=== PATIENT | female | born 1995 | race Caucasian/White ===

== ENCOUNTER 2017-10-24 20:05 | Inpatient (IN) | payer OTHER ==
[2017-10-24] MEDS ORDERED: LACTATED RINGER'S 1,000 ML IV (21:05)
[2017-10-24] MEDS: LACTATED RINGER'S 1,000 ML IV (21:14)
[2017-10-24 21:30] LABS: ADD MAN DIFF? NO
[2017-10-24] MEDS ORDERED: METHYLERGONOVINE 0.2 MG INJ IM (21:30)
[2017-10-24] MEDS ORDERED: CARBOPROST 250 MCG INJ IM (21:30)
[2017-10-24] MEDS ORDERED: MISOPROSTOL 200 MCG TAB PR (21:30)
[2017-10-24] MEDS ORDERED: OXYTOCIN 30 UNITS/LR 500 ML IV ×2 (21:30)
[2017-10-24] MEDS: DINOPROSTONE 10 MG VAG SUPP VAG (21:51)
[2017-10-24 21:55] LABS: INR 0.93; PROTIME 12.6 Sec (11.9-14.9)
[2017-10-24 23:47] LABS: BASOPHILS % 0.3 % (0.0-2.0); EOSINOPHILS # 0.1 10^3/ul (0.0-0.5); EOSINOPHILS % 0.5 % (0.0-7.0); HEMATOCRIT 36.4 % (37.0-47.0); HEMOGLOBIN 13.2 g/dl (12.0-16.0); LYMPHOCYTES # 2.1 10^3/ul (0.8-2.9); LYMPHOCYTES % 20.1 % (18.0-55.0); MEAN CORPUSCULAR HEMOGLOBIN 33.2 pg (29.0-33.0); MEAN CORPUSCULAR HGB CONC 36.3 g/dl (32.0-37.0); MEAN CORPUSCULAR VOLUME 91.5 fl (72.0-104.0); MEAN PLATELET VOLUME 11.5 fl (7.4-10.4); MONOCYTE # 0.8 10^3/ul (0.3-0.9); MONOCYTES % 7.5 % (0.0-13.0); NEUTROPHIL # 7.2 10^3/ul (1.6-7.5); NEUTROPHILS % 71.1 % (30.0-74.0); PLATELET COUNT 212 10^3/UL (140-415); RED BLOOD COUNT 3.98 10^6/ul (4.20-5.40); RED CELL DISTRIBUTION WIDTH 12.6 % (11.5-14.5)
[2017-10-24 23:47] LABS: WHITE BLOOD COUNT 10.2 10^3/ul (4.8-10.8)
[2017-10-25 00:03] LABS: HEPATITIS B SURFACE ANTIGEN NEGATIVE (NEGATIVE)
[2017-10-25 00:17] LABS: AMPHETAMINE/METHAMPHETAMINE Negative (NEGATIVE); BARBITURATES Negative (NEGATIVE); BENZODIAZEPINES Negative (NEGATIVE); CANNABINOIDS Negative (NEGATIVE); COCAINE Negative (NEGATIVE); OPIATES Negative (NEGATIVE)
[2017-10-25] MEDS: LACTATED RINGER'S 1,000 ML IV ×3 (02:07→17:07)
[2017-10-25] MEDS: OXYTOCIN 30 UNITS/LR 500 ML IV ×2 (09:47→18:44)
[2017-10-25] MEDS ORDERED: BUTORPHANOL 2 MG INJ (18:34)
[2017-10-25] MEDS: IBUPROFEN 600 MG TAB PO (18:40)
[2017-10-25] MEDS: LIDOCAINE 1% (MPF) 30 ML INJ INJ (18:45)
[2017-10-25] MEDS ORDERED: CARBOPROST 250 MCG INJ IM (21:00)
[2017-10-25] MEDS ORDERED: HYDROCODONE/APAP (5/325) TAB PO ×2 (21:00)
[2017-10-25] MEDS ORDERED: OXYTOCIN 30 UNITS/LR 500 ML IV (21:00)
[2017-10-25] MEDS ORDERED: LANOLIN 7 GM TUBE TOP (21:00)
[2017-10-25] MEDS ORDERED: ZOLPIDEM 5 MG TAB PO (21:00)
[2017-10-25] MEDS ORDERED: MISOPROSTOL 200 MCG TAB PR (21:00)
[2017-10-25] MEDS ORDERED: METHYLERGONOVINE 0.2 MG INJ IM (21:00)
[2017-10-25] MEDS: WITCH HAZEL/GLYCERIN PAD PR (21:30)
[2017-10-25] MEDS: BENZOCAINE 20% 56 ML SPRAY TOP (21:30)
[2017-10-25] MEDS: MAGNESIUM HYDROXIDE 30ML CUP PO (21:30)
[2017-10-25] MEDS: SENNA/DOCUSATE NA (8.6MG/50MG) TAB PO (21:30)
[2017-10-25 22:33] LABS: RAPID PLASMA REAGIN NONREACTIVE (NR)
[2017-10-25] MEDS: LACTATED RINGER'S 1,000 ML IV* (23:15)
[2017-10-26] MEDS: IBUPROFEN 600 MG TAB PO ×5 (00:08→23:45)
[2017-10-26 08:39] LABS: ADD MAN DIFF? NO
[2017-10-26 08:49] LABS: WHITE BLOOD COUNT 11.8 10^3/ul (4.8-10.8)
[2017-10-26 08:49] LABS: BASOPHILS % 0.3 % (0.0-2.0); EOSINOPHILS % 0.3 % (0.0-7.0); HEMATOCRIT 32.7 % (37.0-47.0); LYMPHOCYTES % 16.7 % (18.0-55.0); MEAN CORPUSCULAR HEMOGLOBIN 33.4 pg (29.0-33.0); MEAN CORPUSCULAR HGB CONC 36.7 g/dl (32.0-37.0); MEAN CORPUSCULAR VOLUME 91.1 fl (72.0-104.0); MEAN PLATELET VOLUME 11.3 fl (7.4-10.4); MONOCYTE # 1.1 10^3/ul (0.3-0.9); NEUTROPHIL # 8.6 10^3/ul (1.6-7.5); NEUTROPHILS % 72.9 % (30.0-74.0); PLATELET COUNT 186 10^3/UL (140-415); RED BLOOD COUNT 3.59 10^6/ul (4.20-5.40); RED CELL DISTRIBUTION WIDTH 12.7 % (11.5-14.5)
[2017-10-26] MEDS: MAGNESIUM HYDROXIDE 30ML CUP PO ×2 (10:06→20:45)
[2017-10-26] MEDS: DIBUCAINE 1% 30 GM OINT PR (10:06)
[2017-10-26] MEDS: SENNA/DOCUSATE NA (8.6MG/50MG) TAB PO ×2 (10:07→20:45)
[2017-10-27] MEDS: IBUPROFEN 600 MG TAB PO ×2 (05:28→13:07)
[2017-10-27] MEDS: MAGNESIUM HYDROXIDE 30ML CUP PO (08:29)
[2017-10-27] MEDS ORDERED: DIPHTH/TET/ACEL PERTUSS (ADULT) 0.5 ML VIAL IM* (09:00)
[2017-10-27] MEDS: VARICELLA VACCINE LIVE/PF 1,350 UNIT/0.5 ML ML SC* (09:00)
[2017-10-27] MEDS: SENNA/DOCUSATE NA (8.6MG/50MG) TAB PO (09:00)
[2017-10-27] MEDS ORDERED: MEASLES,MUMPS,RUBELLA VACCINE INJ SC* (09:00)
== END 2017-10-27 14:35 | disposition home or self-care (01) | DRG 775 ==
LOC: OBT 20:05 → L-D 20:07 → PP1 10-25 20:19 → OBT 21:38 → L-D 21:42
PROVIDERS: Obstetrics & Gynecology
PROC: 10E0XZZ Delivery of Products of Conception, External Approach (ICD-10-PCS; principal; 2017-10-25)
PROC: 0UQKXZZ Repair Hymen, External Approach (ICD-10-PCS; 2017-10-25)
PROC: 3E0P7VZ Introduction of Hormone into Female Reproductive, Via Natural or Artificial Opening (ICD-10-PCS; 2017-10-25)
DX: O70.0 First degree perineal laceration during delivery (principal); Z37.0 Single live birth; Z3A.39 39 weeks gestation of pregnancy
CPT/HCPCS: 80307; 85025; 85610; 85730; 86592; 86900; 86901; 87340; 90716

== ENCOUNTER 2018-06-06 16:07 | Inpatient (IN) | payer BC ==
[2018-06-06] MEDS: SODIUM CHLORIDE 0.9% 1L BAG IV* (17:50)
[2018-06-06] MEDS: ACETAMINOPHEN 325 MG TAB PO (17:50)
[2018-06-06 17:51] LABS: ADD MAN DIFF? NO
[2018-06-06] MEDS: ONDANSETRON 4 MG INJ IV (17:53)
[2018-06-06 17:56] LABS: ABNORMAL IP MESSAGE 1; BASOPHILS % 0.1 % (0.0-2.0); EOSINOPHILS % 0.1 % (0.0-7.0); HEMATOCRIT 34.2 % (37.0-47.0); HEMOGLOBIN 12.3 g/dl (12.0-16.0); LYMPHOCYTES # 0.4 10^3/ul (0.8-2.9); LYMPHOCYTES % 2.7 % (15.0-51.0); MEAN CORPUSCULAR HEMOGLOBIN 31.5 pg (29.0-33.0); MEAN CORPUSCULAR VOLUME 87.5 fl (82.0-101.0); MEAN PLATELET VOLUME 10.4 fl (7.4-10.4); MONOCYTE # 0.5 10^3/ul (0.3-0.9); MONOCYTES % 3.4 % (0.0-11.0); NEUTROPHIL # 12.4 10^3/ul (1.6-7.5); NEUTROPHILS % 93.3 % (39.0-77.0); PLATELET COUNT 194 10^3/UL (140-415); RED BLOOD COUNT 3.91 10^6/ul (4.20-5.40); RED CELL DISTRIBUTION WIDTH 12.2 % (11.5-14.5)
[2018-06-06 17:56] LABS: WHITE BLOOD COUNT 13.3 10^3/ul (4.8-10.8)
[2018-06-06 18:01] LABS: LACTIC ACID 1.6 mmol/L (0.5-2.0)
[2018-06-06 18:04] LABS: ADD UMIC YES; UR ASCORBIC ACID NEGATIVE (NEGATIVE); UR BACTERIA FEW /HPF (NONE SEEN); UR BILIRUBIN (Dip) NEGATIVE (NEGATIVE); UR BLOOD (Dip) 1+ mg/dL (NEGATIVE); UR CLARITY SLIGHTLY CLOUDY (CLEAR); UR COLOR YELLOW (YELLOW); UR GLUCOSE (Dip) NEGATIVE (NEGATIVE); UR KETONES (Dip) 2+ mg/dL (NEGATIVE); UR LEUKOCYTE ESTERASE (Dip) 2+ Leu/ul (NEGATIVE); UR MUCUS FEW /HPF (NONE SEEN); UR NITRITE (Dip) POSITIVE (NEGATIVE); UR RBC 8 /HPF (0-5); UR SPECIFIC GRAVITY (Dip) 1.016 (1.003-1.030); UR SQUAMOUS EPITHELIAL CELL FEW /HPF (FEW); UR TOTAL PROTEIN (Dip) 2+ mg/dl (NEGATIVE); UR UROBILINOGEN (Dip) NEGATIVE (NEGATIVE); UR WBC 94 /HPF (0-5)
[2018-06-06 18:08] LABS: POSITIVE DIFF @See below
[2018-06-06 18:22] LABS: ALANINE AMINOTRANSFERASE 13 IU/L (13-69); ALBUMIN 4.1 g/dl (3.3-4.9); ALKALINE PHOSPHATASE 57 IU/L (42-121); ANION GAP 17 (8-16); ASPARTATE AMINO TRANSFERASE 18 IU/L (15-46); BILIRUBIN,INDIRECT 0.9 mg/dl (0-1.1); BILIRUBIN,TOTAL 0.9 mg/dl (0.2-1.3); BLOOD UREA NITROGEN 6 mg/dl (7-20); CARBON DIOXIDE 19 mmol/L (21-31); CHLORIDE 104 mmol/L (97-110); GLUCOSE 122 mg/dl (70-220); POTASSIUM 3.6 mmol/L (3.5-5.1); SODIUM 136 mmol/L (135-144); TOTAL PROTEIN 7.5 g/dl (6.1-8.1)
[2018-06-06] MEDS: CEFTRIAXONE 1 GM/50 ML (PMX) 50 ML IVPB (18:48)
[2018-06-06 19:36] LABS: LACTIC ACID 1.4 mmol/L (0.5-2.0)
[2018-06-06] MEDS ORDERED: ACETAMINOPHEN 325 MG TAB PO (21:30)
[2018-06-06] MEDS ORDERED: ONDANSETRON 4 MG INJ IV ×2 (21:30→23:00)
[2018-06-06 21:56] LABS: LACTIC ACID 0.7 mmol/L (0.5-2.0)
[2018-06-06] MEDS ORDERED: NACL 0.9% 3 ML SYG IV (23:00)
[2018-06-06] MEDS ORDERED: DOCUSATE SODIUM 100 MG CAP PO (23:00)
[2018-06-06] MEDS ORDERED: BISACODYL (EC) 5 MG TAB PO (23:00)
[2018-06-07 05:11] LABS: ADD MAN DIFF? NO
[2018-06-07 05:17] LABS: BASOPHILS % 0.2 % (0.0-2.0); EOSINOPHILS # 0.1 10^3/ul (0.0-0.5); EOSINOPHILS % 0.5 % (0.0-7.0); HEMATOCRIT 30.6 % (37.0-47.0); HEMOGLOBIN 11.1 g/dl (12.0-16.0); LYMPHOCYTES # 1.4 10^3/ul (0.8-2.9); LYMPHOCYTES % 15.4 % (15.0-51.0); MEAN CORPUSCULAR HEMOGLOBIN 32.4 pg (29.0-33.0); MEAN CORPUSCULAR HGB CONC 36.3 g/dl (32.0-37.0); MEAN CORPUSCULAR VOLUME 89.2 fl (82.0-101.0); MEAN PLATELET VOLUME 10.2 fl (7.4-10.4); MONOCYTE # 0.9 10^3/ul (0.3-0.9); MONOCYTES % 9.6 % (0.0-11.0); NEUTROPHIL # 6.9 10^3/ul (1.6-7.5); NEUTROPHILS % 73.9 % (39.0-77.0); PLATELET COUNT 183 10^3/UL (140-415); RED BLOOD COUNT 3.43 10^6/ul (4.20-5.40); RED CELL DISTRIBUTION WIDTH 12.1 % (11.5-14.5)
[2018-06-07 05:17] LABS: WHITE BLOOD COUNT 9.3 10^3/ul (4.8-10.8)
[2018-06-07 05:28] LABS: HEMOGLOBIN A1C 4.7 % (0-5.9)
[2018-06-07 05:39] LABS: ALANINE AMINOTRANSFERASE 16 IU/L (13-69); ALBUMIN 3.4 g/dl (3.3-4.9); ALBUMIN/GLOBULIN RATIO 1.17; ALKALINE PHOSPHATASE 46 IU/L (42-121); ANION GAP 10 (8-16); ASPARTATE AMINO TRANSFERASE 13 IU/L (15-46); BILIRUBIN,INDIRECT 0.6 mg/dl (0-1.1); BILIRUBIN,TOTAL 0.6 mg/dl (0.2-1.3); BLOOD UREA NITROGEN 3 mg/dl (7-20); CALCIUM 8.5 mg/dl (8.4-10.2); CARBON DIOXIDE 23 mmol/L (21-31); CHLORIDE 108 mmol/L (97-110); GLUCOSE 95 mg/dl (70-220); MAGNESIUM 1.6 mg/dl (1.7-2.5); POTASSIUM 3.3 mmol/L (3.5-5.1); SODIUM 138 mmol/L (135-144); TOTAL PROTEIN 6.3 g/dl (6.1-8.1)
[2018-06-07 06:07] LABS: THYROID STIMULATING HORMONE 0.027 MIU/L (0.465-4.680)
[2018-06-07] MEDS: MAGNESIUM SULFATE 2 GM/50 ML 50 ML IVPB (08:22)
[2018-06-07] MEDS: POTASSIUM CHLORIDE (SR) 20 MEQ TAB PO (08:52)
[2018-06-07] MEDS: SOD CHLORIDE 0.9% 1,000 ML IV (09:38)
[2018-06-07 11:25] LABS: T4 (THYROXINE) 12.1 ug/dl (5.5-11.0)
[2018-06-07 11:48] LABS: FREE T3 3.29 pg/ml (2.77-5.27)
[2018-06-07 12:02] LABS: TRIIODOTHYRONINE 1.17 ng/ml (0.97-1.69)
[2018-06-07] MEDS: CEFTRIAXONE 2 GM/50 ML (PMX) 50 ML IVPB (18:04)
[2018-06-08] MEDS: ACETAMINOPHEN 325 MG TAB PO (00:21)
[2018-06-08] MEDS: SOD CHLORIDE 0.9% 1,000 ML IV ×2 (00:22→02:33)
[2018-06-08] MEDS ORDERED: PIPER-TAZO 3.375 GM IV (PMX) 100 ML IVPB (02:00)
[2018-06-08 06:05] LABS: ANION GAP 11 (8-16); BLOOD UREA NITROGEN 3 mg/dl (7-20); CALCIUM 8.7 mg/dl (8.4-10.2); CARBON DIOXIDE 25 mmol/L (21-31); CHLORIDE 106 mmol/L (97-110); GLUCOSE 87 mg/dl (70-220); MAGNESIUM 1.9 mg/dl (1.7-2.5); PHOSPHORUS 4.5 mg/dl (2.5-4.9); SODIUM 138 mmol/L (135-144)
[2018-06-08] MEDS: CEFTRIAXONE 2 GM/50 ML (PMX) 50 ML IVPB (18:29)
[2018-06-09] MEDS: CEFTRIAXONE 2 GM/50 ML (PMX) 50 ML IVPB (18:40)
[2018-06-13 23:27] LABS: TSH RECEPTOR ANTIBODY 10 (< OR = 16)
== END 2018-06-10 12:30 | disposition left against medical advice (07) | DRG 781 ==
LOC: MS3 21:13 → MS1 06-08 02:35 → FTE 16:07
DX: O23.01 Infections of kidney in pregnancy, first trimester (principal); O20.9 Hemorrhage in early pregnancy, unspecified; Z3A.13 13 weeks gestation of pregnancy
CPT/HCPCS: 36415; 76775; 76805; 80048; 80053; 81001; 83036; 83605; 83735; 84100; 84235; 84436; 84439; 84443; 84480; 84481; 85025; 87040; 87086; 96374; 96375; 99285-25

== ENCOUNTER 2018-12-01 04:19 | Inpatient (IN) | payer BC ==
[2018-12-01] MEDS ORDERED: METHYLERGONOVINE 0.2 MG INJ IM ×2 (05:30→10:30)
[2018-12-01] MEDS ORDERED: AMPICILLIN 2 GM/NS (PMX) 100 ML IV (05:30)
[2018-12-01] MEDS ORDERED: BUTORPHANOL 2 MG INJ IV (05:30)
[2018-12-01] MEDS ORDERED: IBUPROFEN 600 MG TAB PO (05:30)
[2018-12-01] MEDS ORDERED: LIDOCAINE 1% (MPF) 30 ML INJ INJ (05:30)
[2018-12-01] MEDS ORDERED: CARBOPROST 250 MCG INJ IM ×2 (05:30→10:30)
[2018-12-01] MEDS ORDERED: OXYCODONE/ACETAMINOPHEN (5/325) TAB PO (05:30)
[2018-12-01] MEDS ORDERED: MISOPROSTOL 200 MCG TAB PR ×2 (05:30→10:30)
[2018-12-01] MEDS ORDERED: OXYTOCIN 30 UNITS/LR 500 ML IV ×2 (05:30→10:30)
[2018-12-01] MEDS: LACTATED RINGER'S 1,000 ML IV ×2 (05:41→06:23)
[2018-12-01 05:42] LABS: ADD MAN DIFF? NO
[2018-12-01 05:46] LABS: WHITE BLOOD COUNT 7.9 10^3/ul (4.8-10.8)
[2018-12-01 05:46] LABS: BASOPHILS % 0.5 % (0.0-2.0); EOSINOPHILS # 0.1 10^3/ul (0.0-0.5); EOSINOPHILS % 1.8 % (0.0-7.0); HEMATOCRIT 34.9 % (37.0-47.0); HEMOGLOBIN 12.4 g/dl (12.0-16.0); LYMPHOCYTES # 2.3 10^3/ul (0.8-2.9); LYMPHOCYTES % 29.4 % (15.0-51.0); MEAN CORPUSCULAR HEMOGLOBIN 31.7 pg (29.0-33.0); MEAN CORPUSCULAR HGB CONC 35.5 g/dl (32.0-37.0); MEAN CORPUSCULAR VOLUME 89.3 fl (82.0-101.0); MEAN PLATELET VOLUME 10.9 fl (7.4-10.4); MONOCYTE # 0.5 10^3/ul (0.3-0.9); MONOCYTES % 6.7 % (0.0-11.0); NEUTROPHIL # 4.8 10^3/ul (1.6-7.5); NEUTROPHILS % 61.2 % (39.0-77.0); PLATELET COUNT 177 10^3/UL (140-415); RED BLOOD COUNT 3.91 10^6/ul (4.20-5.40); RED CELL DISTRIBUTION WIDTH 12.9 % (11.5-14.5)
[2018-12-01 05:47] LABS: ADD UMIC YES; UR ASCORBIC ACID NEGATIVE (NEGATIVE); UR BACTERIA FEW /HPF (NONE SEEN); UR BILIRUBIN (Dip) NEGATIVE (NEGATIVE); UR BLOOD (Dip) 1+ mg/dL (NEGATIVE); UR CLARITY CLEAR (CLEAR); UR COLOR YELLOW (YELLOW); UR GLUCOSE (Dip) NEGATIVE (NEGATIVE); UR KETONES (Dip) NEGATIVE (NEGATIVE); UR LEUKOCYTE ESTERASE (Dip) TRACE Leu/ul (NEGATIVE); UR MUCUS FEW /HPF (NONE SEEN); UR NITRITE (Dip) NEGATIVE (NEGATIVE); UR RBC 0 /HPF (0-5); UR SPECIFIC GRAVITY (Dip) 1.013 (1.003-1.030); UR TOTAL PROTEIN (Dip) NEGATIVE (NEGATIVE); UR UROBILINOGEN (Dip) 1+ mg/dL (NEGATIVE); UR WBC 7 /HPF (0-5)
[2018-12-01 06:07] LABS: INR 0.83; PARTIAL THROMBOPLASTIN TIME 29.7 Sec (23.0-35.0); PROTIME 11.5 Sec (11.9-14.9); PT RATIO 0.9
[2018-12-01 06:08] LABS: RUPTURE FETAL MEMBRANES NEGATIVE (NEGATIVE)
[2018-12-01 06:35] LABS: HEPATITIS B SURFACE ANTIGEN NEGATIVE (NEGATIVE)
[2018-12-01] MEDS: MINERAL OIL LIGHT 10 ML VIAL TOP (07:49)
[2018-12-01] MEDS: OXYTOCIN 30 UNITS/LR 500 ML IV ×2 (07:53→08:12)
[2018-12-01] MEDS ORDERED: AMPICILLIN 1 GM/NS (PMX) 50 ML IV (09:30)
[2018-12-01] MEDS: ACETAMINOPHEN 1000MG/100ML IV 100 ML IVPB (10:00)
[2018-12-01] MEDS ORDERED: BENZOCAINE 20% 56 ML SPRAY TOP (10:30)
[2018-12-01] MEDS ORDERED: ZOLPIDEM 5 MG TAB PO (10:30)
[2018-12-01] MEDS ORDERED: DIBUCAINE 1% 30 GM OINT TOP (10:30)
[2018-12-01] MEDS ORDERED: HYDROCODONE/APAP (5/325) TAB PO ×2 (10:30)
[2018-12-01] MEDS ORDERED: WITCH HAZEL/GLYCERIN PAD PR (10:30)
[2018-12-01] MEDS: LANOLIN HPA 1 PKT TOP (12:12)
[2018-12-01] MEDS: IBUPROFEN 600 MG TAB PO ×2 (12:13→17:56)
[2018-12-01] MEDS: LACTATED RINGER'S 1,000 ML IV* (12:13)
[2018-12-01 15:11] LABS: RAPID PLASMA REAGIN NONREACTIVE (NR)
[2018-12-01] MEDS: MAGNESIUM HYDROXIDE 30ML CUP PO (20:24)
[2018-12-01] MEDS: SENNA/DOCUSATE NA (8.6MG/50MG) TAB PO (22:00)
[2018-12-02] MEDS: IBUPROFEN 600 MG TAB PO ×4 (00:38→17:44)
[2018-12-02 06:47] LABS: ADD MAN DIFF? NO
[2018-12-02 06:49] LABS: BASOPHIL # 0.1 10^3/ul (0.0-0.1); BASOPHILS % 0.6 % (0.0-2.0); EOSINOPHILS # 0.1 10^3/ul (0.0-0.5); EOSINOPHILS % 1.4 % (0.0-7.0); HEMATOCRIT 32.5 % (37.0-47.0); HEMOGLOBIN 11.3 g/dl (12.0-16.0); LYMPHOCYTES # 3.1 10^3/ul (0.8-2.9); LYMPHOCYTES % 35.1 % (15.0-51.0); MEAN CORPUSCULAR HEMOGLOBIN 31.6 pg (29.0-33.0); MEAN CORPUSCULAR HGB CONC 34.8 g/dl (32.0-37.0); MEAN CORPUSCULAR VOLUME 90.8 fl (82.0-101.0); MEAN PLATELET VOLUME 11.2 fl (7.4-10.4); MONOCYTE # 0.7 10^3/ul (0.3-0.9); MONOCYTES % 7.8 % (0.0-11.0); NEUTROPHIL # 4.9 10^3/ul (1.6-7.5); NEUTROPHILS % 54.6 % (39.0-77.0); PLATELET COUNT 157 10^3/UL (140-415); RED BLOOD COUNT 3.58 10^6/ul (4.20-5.40); RED CELL DISTRIBUTION WIDTH 13.1 % (11.5-14.5)
[2018-12-02 06:49] LABS: WHITE BLOOD COUNT 8.9 10^3/ul (4.8-10.8)
[2018-12-02] MEDS: SENNA/DOCUSATE NA (8.6MG/50MG) TAB PO ×2 (09:12→21:00)
[2018-12-02] MEDS: MAGNESIUM HYDROXIDE 30ML CUP PO ×2 (09:12→21:00)
[2018-12-02] MEDS: CIPROFLOXACIN 250 MG TAB PO (17:44)
[2018-12-03] MEDS: IBUPROFEN 600 MG TAB PO ×3 (01:12→11:42)
[2018-12-03] MEDS: CIPROFLOXACIN 250 MG TAB PO (06:29)
[2018-12-03] MEDS: VARICELLA VACCINE LIVE/PF 1,350 UNIT/0.5 ML ML SC* (09:00)
[2018-12-03] MEDS: MEASLES,MUMPS,RUBELLA VACCINE INJ SC* (09:00)
[2018-12-03] MEDS: DIPHTH/TET/ACEL PERTUSS (ADULT) 0.5 ML VIAL IM* (09:00)
[2018-12-03] MEDS: MAGNESIUM HYDROXIDE 30ML CUP PO (09:00)
[2018-12-03] MEDS: SENNA/DOCUSATE NA (8.6MG/50MG) TAB PO (09:00)
== END 2018-12-03 16:20 | disposition home or self-care (01) | DRG 807 ==
LOC: OBT 04:19 → L-D 04:21 → OBT 04:47 → L-D 04:47 → PP1 09:22
PROVIDERS: Obstetrics & Gynecology
PROC: 10E0XZZ Delivery of Products of Conception, External Approach (ICD-10-PCS; principal; 2018-12-01)
DX: O80 Encounter for full-term uncomplicated delivery (principal); Z37.0 Single live birth; Z3A.39 39 weeks gestation of pregnancy
CPT/HCPCS: 76815; 81001; 84112; 85025; 85610; 85730; 86592; 86850; 86900; 86901; 87086; 87340